=== PATIENT | male | born 1995 | race Two or more races ===

== ENCOUNTER 2017-05-29 21:34 | Emergency (ER) | payer SELFPAY ==
[2017-05-29] MEDS ORDERED: Cephalexin 500 MG Cap PO ONE (22:51)
[2017-05-29] MEDS ORDERED: Hydrocortisone/Neomycin/Polymyxin B Ophth Susp 7.5 ML Bottle ONE (22:51)
[2017-05-29] MEDS ORDERED: Ibuprofen 800 MG Tab PO ONE (23:09)
--- NOTE | 2017-05-29 23:19 | EDM.PDOC ---
ED HPI GENERAL MEDICAL PROBLEM - General Chief Complaint: Eye Problems Stated Complaint: UNABLE TO SEE ALL DAY Time Seen by Provider: 05/29/17 21:50 Source of Information: Reports: Patient, Significant Other History Limitations: Reports: No Limitations - History of Present Illness INITIAL COMMENTS - FREE TEXT/NARRATIVE: Patient is a 22 year old man who has had a cold the last few days. When he awoke this morning at 10:00 am he could not open his eyes because they were mattered shut with purulent thick yellow exudate. He has been having worsening pain and photophobia all day and his girlfriend brought him into the ED to be evaluated. He cannot open his eyes and his photophobia is severe. He does not wear contacts. 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 Onset: Today Onset Date: 05/29/17 Onset Time: 10:00 Duration: Hour(s): (12) Location: Reports: Other (Eyes bilaterally.) Quality: Reports: Sharp, Stabbing, Throbbing Severity: Severe Improves with: Reports: None Worsens with: Reports: None Context: Reports: Other (Cold symptoms the last few days.) Associated Symptoms: Reports: Other (Cannot open eyes due to the pain and photophobia.) Bilateral Eye Pain Score (Numeric/FACES): 10 - Related Data Allergies Allergy/AdvReac Type Severity Reaction Status Date / Time No Known Allergies Allergy Verified 05/29/17 21:45 Home Meds: Home Meds NK [No Known Home Meds] 05/29/17 [History] Past Medical History - Infectious Disease History Infectious Disease History: Reports: Chicken Pox Social & Family History - Family History Family Medical History: Noncontributory - Tobacco Use Smoking Status *Q: Never Smoker Second Hand Smoke Exposure: No - Caffeine Use Caffeine Use: Reports: Coffee - Recreational Drug Use Recreational Drug Use: No ED ROS GENERAL - Review of Systems Review Of Systems: See Below Constitutional: Reports: No Symptoms HEENT: Reports: Rhinitis Respiratory: Reports: Cough Cardiovascular: Reports: No Symptoms Endocrine: Reports: No Symptoms GI/Abdominal: Reports: No Symptoms : Reports: No Symptoms Musculoskeletal: Reports: No Symptoms Skin: Reports: No Symptoms Neurological: Reports: No Symptoms Psychiatric: Reports: No Symptoms Hematologic/Lymphatic: Reports: No Symptoms Immunologic: Reports: No Symptoms ED EXAM GENERAL W FULL EYE - Physical Exam Exam: See Below Exam Limited By: No Limitations General Appearance: Alert, WD/WN, No Apparent Distress Eye Exam: Bilateral Eye: Abnormal EOM, Conjunctival Injection, Corneal Abrasion (By fluorescein exam), EOMI, Vision Changes (Cannot open eyes.) Eyelids: Bilateral: Edema (mild bilaterally), Erythema Conjunctiva & Sclera: Bilateral: Conjunctival Edema, Discharge, Injected Cornea Exam: Bilateral: Corneal Abrasion, Examined with Flourescein Extraocular Movements: Bilateral: Intact Pupils: Normal Accommodation Pupillary Size: Bilateral: 3 mm Pupillary Reaction: Bilateral: Sluggish Anterior Chamber: Bilateral: Normal Appearance Posterior Chamber: Bilateral: Normal Funduscopic Ears: Normal External Exam, Normal Canal, Hearing Grossly Normal, Normal TMs Nose: Normal Inspection, Normal Mucosa, No Blood Throat/Mouth: Normal Inspection, Normal Lips, Normal Teeth, Normal Gums, Normal Oropharynx, Normal Voice, No Airway Compromise Head: Atraumatic, Normocephalic Neck: Normal Inspection, Supple, Non-Tender, Full Range of Motion Respiratory/Chest: No Respiratory Distress, Lungs Clear, Normal Breath Sounds, No Accessory Muscle Use, Chest Non-Tender Cardiovascular: Normal Peripheral Pulses GI/Abdominal: Normal Bowel Sounds, Soft, Non-Tender, No Organomegaly, No Distention, No Abnormal Bruit, No Mass Extremities: Normal Inspection, Normal Range of Motion, Non-Tender, Normal Capillary Refill, No Pedal Edema Neurological: Alert, Oriented, CN II-XII Intact, Normal Cognition, Normal Gait, Normal Reflexes, No Motor/Sensory Deficits Psychiatric: Normal Affect, Normal Mood Skin Exam: Warm, Dry, Intact, Normal Color, No Rash Lymphatic: No Adenopathy Course - Vital Signs Text/Narrative:: Unremarkable ED visit. He got good relief with the numbing drops and exam was then able to be done. Cultures for Chlamydia and Gonorrhea were collected. He will use cortisporin eyedrops 2 drops in each eye q 2 hours while awake. Consultation was done with Dr. Foster in opthomology in [place], [place] and he will see him in his office tomorrow in [place] at 9 am. He also asked for him to be put on Cephalexin 500 mg po bid x 10 days. Last Recorded V/S: Last Vital Signs Temp 36.1 C 05/29/17 21:45 Pulse 65 05/29/17 21:45 Resp 14 05/29/17 21:45 BP 143/85 H 05/29/17 21:45 Pulse Ox 100 05/29/17 21:45 - Orders/Labs/Meds Orders: Active Orders 24 hr Category Date Time Status CHLAMYDIA,AND GC BY APTIMA Routine Lab 05/29/17 22:39 Received Departure - Departure Time of Disposition: 23:29 Disposition: Home, Self-Care 01 Condition: Good Clinical Impression: Bacterial conjunctivitis of both eyes - Discharge Information Referrals: PCP,None [Primary Care Provider] - - My Orders Last 24 Hours: My Active Orders 05/29/17 22:39 CHLAMYDIA,AND GC BY APTIMA Routine - Assessment/Plan Last 24 Hours: My Active Orders 05/29/17 22:39 CHLAMYDIA,AND GC BY APTIMA Routine
== END 2017-05-29 23:22 | disposition home or self-care (01) ==
LOC: FB.ED 21:34
DX: H10.9 Unspecified conjunctivitis (principal)
CPT/HCPCS: 87491; 87591; 99283; A9270

== ENCOUNTER 2025-01-11 18:53 | Emergency (ER) | payer BC ==
[2025-01-11] MEDS ORDERED: Sodium Chloride 0.9% 10 ML Syringe FLUSH PRN (18:58)
[2025-01-11 19:11] LABS: BASOPHILS ABSOLUTE AUTO 0.1 x10-3/uL (0.0-0.3); BASOPHILS PERCENT AUTO 0.6 % (0.3-3.8); EOSINOPHILS ABSOLUTE AUTO 0.2 x10-3/uL (0.0-0.6); EOSINOPHILS PERCENT AUTO 1.2 % (0.1-6.8); MONOCYTES ABSOLUTE AUTO 1.0 x10-3/uL (0.0-1.2); RED CELL DISTRIBUTION WIDTH 12.6 % (12.4-15.0)
[2025-01-11 19:12] LABS: LYMPHOCYTES ABSOLUTE AUTO 4.3 x10-3/uL (0.5-4.5); LYMPHOCYTES PERCENT AUTO 31.6 % (15.8-45.3); MEAN PLATELET VOLUME 8.6 fL (6.7-11.0); MONOCYTES PERCENT AUTO 7.6 % (5.5-15.2); NEUTROPHILS ABSOLUTE AUTO 8.0 x10-3/uL (1.7-6.9); NEUTROPHILS PERCENT AUTO 59.0 % (40.3-71.8); PLATELET COUNT,PLT 298 x10(3)uL (117-477); RED BLOOD CELL COUNT 5.14 x10(6)uL (3.90-5.90); WHITE BLOOD CELL COUNT,WBC 13.6 x10-3/uL (3.2-10.1)
[2025-01-11 19:16] LABS: BLOOD UREA NITROGEN,BUN 33 mg/dL (7-18); CARBON DIOXIDE,CO2 26 mmol/L (21-32); CHLORIDE,CL 104 mmol/L (100-110); CREATININE 1.1 mg/dL (0.70-1.30); ESTIMATED GFR 92 mL/min (>60); GLUCOSE RANDOM 119 mg/dL (80-116); POTASSIUM,K 3.7 mmol/L (3.5-5.3); SODIUM,NA 140 mmol/L (135-145)
[2025-01-11 19:22] LABS: A/G RATIO 1.4; ALANINE AMINOTRANSFERASE,ALT 35 U/L (12-36); ASPARTATE AMNIOTRANSFERASE,AST 26 IU/L (5-25); BILIRUBIN TOTAL 0.4 mg/dL (0.1-1.3); PROTEIN TOTAL,TP 7.2 g/dL (6.0-8.0)
[2025-01-11 19:23] LABS: INR 1.21 (1.00-1.24); PTT,PARTIAL THROMBOPLSTIN TIME 24.1 SECONDS (24.4-33.2)
[2025-01-11] MEDS: Lidocaine 2% Viscous Solution 15 ML UD PO ONE (19:39)
== END 2025-01-11 21:17 | disposition home or self-care (01) ==
LOC: FB.ED 18:53
DX: S01.91XA Laceration without foreign body of unspecified part of head, initial encounter (principal); S40.212A Abrasion of left shoulder, initial encounter; S80.212A Abrasion, left knee, initial encounter; S80.211A Abrasion, right knee, initial encounter; S70.212A Abrasion, left hip, initial encounter; Y93.51 Activity, roller skating (inline) and skateboarding; V00.138A Other skateboard accident, initial encounter
CPT/HCPCS: 12004; 36415; 70450; 72125; 73030; 73502; 73560; 80053; 85025; 85610; 85730; 99285; J2003; 99283